=== PATIENT | male | born 1960 | race African-American/Black ===

== ENCOUNTER 2020-11-14 07:56 | Inpatient (IN) | payer OTHER ==
[~2020-11-14] VITALS: Ht 188 cm; Wt 88.7 kg
[2020-11-14 09:02] LABS: BG BASE EXCESS -5.1 mmol/L (-2.0-2.0); BG CARBOXYHEMOGLOBIN 0.5 % (0.5-1.5); BG DEOXYHEMOGLOBIN 1.2 % (0.0-5.0); BG FRACTION INSPIRED OXYGEN 99.8; BG HCO3 ACT 19.5 mmol/L (22.0-26.0); BG METHEMOGLOBIN 0.3 % (0.0-1.5); BG OXYGEN SATURATION 98.8 % (92.0-98.5); BG PCO2 35.3 mmHg (35.0-45.0); BG PO2 142.2 mmHg (75.0-100.0); BG SAMPLE SITE LEFT RADIAL; BG VENT MODE MASK - NRB
[2020-11-14 09:03] LABS: HEMATOCRIT. 43.6 % (42.0-52.0); HEMOGLOBIN. 14.3 g/dL (14.0-18.0); MEAN CORPUSCULAR HEMOGLOBIN 29.3 pg (28.0-32.0); MEAN CORPUSCULAR VOLUME 89.2 fL (80.0-94.0); MEAN PLATELET VOLUME 7.6 fl (7.4-10.4); PLATELET 209 x1000/uL (130-400); RED BLOOD CELL COUNT 4.89 mill/uL (4.7-6.1); RED CELL DISTRIBUTION WIDTH 13.6 % (11.6-14.6)
[2020-11-14 09:07] LABS: CHLORIDE 110 mEq/L (98-107)
[2020-11-14 09:13] LABS: C REACTIVE PROTEIN QUANT 8.1 mg/L (0.0-3.0)
[2020-11-14 09:16] LABS: CREATINE KINASE 204 IU/L (39-308)
[2020-11-14 09:18] LABS: FIBRINOGEN 382 mg/dL (200-400); INR 1.1; PROTHROMBIN TIME 11.3 sec (9.6-11.0)
[2020-11-14 09:42] LABS: D-DIMER > 35.20 mg/L FEU (<0.50)
[2020-11-14 10:10] LABS: PLATELET ESTIMATE NORMAL
[2020-11-14] MEDS ORDERED: ENOXAPARIN 100MG/ML SYR SUBCUT ONE (11:15)
[2020-11-14] MEDS ORDERED: IOHEXOL-350 100 ML BOTTLE ONE (12:14)
[2020-11-14 17:53] VITALS: BP 141/103
[2020-11-14] MEDS ORDERED: ACETAMINOPHEN 325MG TABLET PO PRN ×2 (18:30)
[2020-11-14] MEDS ORDERED: ONDANSETRON HCL 4MG/2ML INJ IV PRN (18:30)
[2020-11-14] MEDS ORDERED: DEXTROSE 50% WATER 50ML SYRINGE IV PRN (19:30)
[2020-11-14 20:00] VITALS: BP 139/90
[2020-11-14] MEDS: BLOOD SUGAR DIAGNOSTIC STRIP TEST SCH (20:16)
[2020-11-14] MEDS: INSULIN LISPRO 100 UNITS/ML SUBCUT SCH (20:16)
[2020-11-14] MEDS: ENOXAPARIN 100MG/ML SYR SUBCUT SCH (22:15)
[2020-11-15] VITALS: BP 124/88
[2020-11-15 04:00] VITALS: BP 147/88
[2020-11-15] MEDS: BLOOD SUGAR DIAGNOSTIC STRIP TEST SCH ×4 (06:57→21:42)
[2020-11-15] MEDS: INSULIN LISPRO 100 UNITS/ML SUBCUT SCH ×4 (07:40→21:00)
[2020-11-15 08:00] VITALS: BP 128/89
[2020-11-15] MEDS ORDERED: LISINOPRIL 20MG TABLET PO SCH (09:00)
[2020-11-15] MEDS: ENOXAPARIN 100MG/ML SYR SUBCUT SCH ×2 (10:13→21:42)
[2020-11-15 12:00] VITALS: BP 135/95
[2020-11-15 16:00] VITALS: BP 120/81
[2020-11-15 20:39] VITALS: BP 141/86
[2020-11-15] MEDS ORDERED: IPRATROPIUM/ALBUTEROL 0.5-3(2.5)MG/3ML NEB HHN PRN (22:15)
[2020-11-16 00:13] VITALS: BP 139/93
[2020-11-16 04:00] VITALS: BP 122/86
[2020-11-16] MEDS: BLOOD SUGAR DIAGNOSTIC STRIP TEST SCH (06:48)
[2020-11-16 07:31] LABS: BASOPHILS % 0.6 % (0.0-2.0); EOSINOPHILS % 2.8 % (0.0-5.0); HEMATOCRIT. 39.4 % (42.0-52.0); HEMOGLOBIN. 13.3 g/dL (14.0-18.0); LYMPHOCYTES % 19.5 % (20.0-50.0); MEAN CORPUSCULAR HEMOGLOBIN 29.6 pg (28.0-32.0); MEAN CORPUSCULAR VOLUME 87.5 fL (80.0-94.0); MEAN PLATELET VOLUME 8.1 fl (7.4-10.4); MONOCYTES % 9.4 % (2.0-8.0); NEUTROPHILS % 67.7 % (40.0-76.0); PLATELET 236 x1000/uL (130-400); RED CELL DISTRIBUTION WIDTH 13.3 % (11.6-14.6)
[2020-11-16] MEDS: INSULIN LISPRO 100 UNITS/ML SUBCUT SCH (07:34)
[2020-11-16 07:42] LABS: CHLORIDE 107 mEq/L (98-107)
[2020-11-16 07:53] VITALS: BP 127/85
[2020-11-16] MEDS: ENOXAPARIN 100MG/ML SYR SUBCUT SCH ×2 (09:38→22:42)
[2020-11-16 11:10] VITALS: BP 124/77
[2020-11-16 15:21] VITALS: BP 120/70
[2020-11-16 20:00] VITALS: BP 124/87
[2020-11-17 00:33] VITALS: BP 132/95
[2020-11-17 04:00] VITALS: BP 140/98
[2020-11-17 07:57] VITALS: BP 120/87
[2020-11-17] MEDS: ENOXAPARIN 100MG/ML SYR SUBCUT SCH ×2 (11:40→21:34)
[2020-11-17 11:51] VITALS: BP 129/91
[2020-11-17 16:04] VITALS: BP 148/99
[2020-11-17 20:29] VITALS: BP 141/85
[2020-11-18 00:22] VITALS: BP 145/93
[2020-11-18 04:00] VITALS: BP 126/92
[2020-11-18 08:03] VITALS: BP 130/93
[2020-11-18 09:29] VITALS: BP 130/93
== END 2020-11-18 11:00 | disposition home or self-care (01) | DRG 175 ==
LOC: ER 07:56 → EDBD 07:56 → EDBEDREQTM 10:22 → EDBEDREQ 10:22 → EDBEDREQSVC 10:22 → 7WST 11:40 → EDBEDREQ 12:03 → ENRESERV 15:08 → CANRESERV 15:11 → 6WST 23:00
PROVIDERS: ADMIT Internal Medicine; ATTEND Internal Medicine
DX: I26.99 Other pulmonary embolism without acute cor pulmonale (principal); I21.4 Non-ST elevation (NSTEMI) myocardial infarction; J96.01 Acute respiratory failure with hypoxia; E87.8 Other disorders of electrolyte and fluid balance, not elsewhere classified; G90.8 Other disorders of autonomic nervous system; M17.10 Unilateral primary osteoarthritis, unspecified knee; Z20.822 Contact with and (suspected) exposure to COVID-19; I25.10 Atherosclerotic heart disease of native coronary artery without angina pectoris; I10 Essential (primary) hypertension; R74.01 Elevation of levels of liver transaminase levels; Z88.5 Allergy status to narcotic agent
CPT/HCPCS: 36415; 36600; 71045; 71275; 80048; 80053; 80061; 82375; 82550; 82728; 82805; 82962; 83036; 83605; 83615; 83880; 84145; 84484; 85025; 85379; 85384; 86140; 87426; 93005; 93306; 93970; 94618; 97162; 99291; J1650; Q9967